=== PATIENT | male | born 1960 | race Hispanic/Latino ===

== ENCOUNTER 2021-02-25 15:46 | Emergency (ER) | payer OTHER ==
[~2021-02-25 15:46] MED LIST: METF-446 PO
== END 2021-02-25 16:14 | disposition left against medical advice (07) ==
LOC: EDH 15:46
DX: M79.89 Other specified soft tissue disorders (principal); E11.9 Type 2 diabetes mellitus without complications; I10 Essential (primary) hypertension; Z53.21 Procedure and treatment not carried out due to patient leaving prior to being seen by health care provider